=== PATIENT | male | born 1935 | race Caucasian/White ===

== ENCOUNTER 2023-04-29 10:16 | Day surgery (SDC) | payer OTHER ==
[2023-04-27 15:28] VITALS: BMI 23.6
[2023-04-29] MEDS: CYCLOPENTOLATE 2% OPHTH SOLN 2 ML BOTTLE ONE ×3 (10:50→11:00)
[2023-04-29] MEDS: PHENYLEPHRINE 2.5% OPTHALMIC DROP 2ML BOTTLE ONE ×3 (10:50→11:00)
[2023-04-29] MEDS: CIPROFLOXACIN HCL 0.3% OPHTH 2.5ML BOTTLE ONE ×3 (10:50→11:00)
[2023-04-29] MEDS: TROPICAMIDE 1% OPHTH SOLN 15 ML BOTTLE ONE ×3 (10:50→11:00)
[2023-04-29] MEDS ORDERED: TETRACAINE 0.5% OPHTH SOLN 2 ML BOTTLE ONE (10:56)
[2023-04-29] MEDS ORDERED: CARBACHOL 0.01% INTRA-OCULAR 1.5 ML VIAL ONE (10:56)
[2023-04-29] MEDS ORDERED: NEO/POLYMYX B SULF/DEXAMETH OPHTHALMIC 5ML BOTTLE ONE (10:56)
[2023-04-29] MEDS ORDERED: LIDOCAINE 1% P/F 10 MG/ML VIAL ONE (10:56)
[2023-04-29] MEDS ORDERED: BSS (NA/CA/MG/K) BALANCED SALT SOLUTION OPHTH SOLN 15 ML BOTTLE ONE (10:56)
[2023-04-29 11:22] VITALS: RESP 18; TEMP 98.1
[2023-04-29] MEDS ORDERED: MIDAZOLAM HCL 2 MG/2 ML SINGLE DOSE VIAL ONE (11:29)
[2023-04-29 13:03] VITALS: BP 141/69; PULSE 66
== END 2023-04-29 13:00 | disposition home or self-care (01) ==
LOC: FASU 10:16
PROVIDERS: ATTEND Ophthalmology
PROC: 08RK3JZ Replacement of Left Lens with Synthetic Substitute, Percutaneous Approach (ICD-10-PCS; principal; 2023-04-29 11:49)
DX: H26.8 Other specified cataract (principal); H21.542 Posterior synechiae (iris), left eye
CPT/HCPCS: 66982; V2632

== ENCOUNTER 2023-06-24 08:32 | Day surgery (SDC) | payer OTHER ==
[2023-06-18 11:27] VITALS: BMI 23.6
[2023-06-24] MEDS ORDERED: NEO/POLYMYX B SULF/DEXAMETH OPHTHALMIC 5ML BOTTLE ONE (09:08)
[2023-06-24] MEDS ORDERED: BSS (NA/CA/MG/K) BALANCED SALT SOLUTION OPHTH SOLN 15 ML BOTTLE ONE (09:08)
[2023-06-24] MEDS ORDERED: TETRACAINE 0.5% OPHTH SOLN 2 ML BOTTLE ONE (09:08)
[2023-06-24] MEDS ORDERED: LIDOCAINE 1% P/F 10 MG/ML VIAL ONE (09:08)
[2023-06-24] MEDS ORDERED: CARBACHOL 0.01% INTRA-OCULAR 1.5 ML VIAL ONE (09:08)
[2023-06-24 09:10] VITALS: RESP 16
[2023-06-24] MEDS: PHENYLEPHRINE 2.5% OPHTH SOLN 15 ML BOTTLE OD ONE ×3 (09:10→09:20)
[2023-06-24] MEDS: CIPROFLOXACIN 0.3% EYE DROPS 5 ML BOTTLE OD ONE ×3 (09:10→09:20)
[2023-06-24] MEDS: CYCLOPENTOLATE 2% OPHTH SOLN 2 ML BOTTLE OD ONE ×3 (09:10→09:20)
[2023-06-24] MEDS: TROPICAMIDE 1% OPHTH SOLN 15 ML BOTTLE OD ONE ×3 (09:10→09:20)
[2023-06-24] MEDS ORDERED: MIDAZOLAM HCL 2 MG/2 ML SINGLE DOSE VIAL ONE (10:05)
[2023-06-24] MEDS ORDERED: PHENYLEPHRINE/KETOROLAC 4 ML VIAL IO ONE (10:23)
[2023-06-24 12:13] VITALS: TEMP 97.1
[2023-06-24 12:55] VITALS: BP 120/86; PULSE 76
== END 2023-06-24 12:10 | disposition home or self-care (01) ==
LOC: FASU 08:32
PROVIDERS: ATTEND Ophthalmology
PROC: 08RJ3JZ Replacement of Right Lens with Synthetic Substitute, Percutaneous Approach (ICD-10-PCS; principal; 2023-06-24 10:38)
DX: H26.8 Other specified cataract (principal)
CPT/HCPCS: 66984; V2632; J1097